=== PATIENT | female | born 1990 | race Caucasian/White ===

== ENCOUNTER 2017-08-21 10:06 | Inpatient (IN) | payer BC ==
[2017-08-21] MEDS ORDERED: ONDANSETRON HCL/PF 2 MG/ML VIAL IV PRN ×2 (10:13→15:44)
[2017-08-21] MEDS ORDERED: DEXTROSE 5%-LACTATED RINGERS 1,000 ML IV PRN (10:13)
[2017-08-21] MEDS ORDERED: LIDOCAINE HCL 50 ML VIAL PERI PRN (10:13)
[2017-08-21] MEDS ORDERED: RINGER'S SOLUTION,LACTATED 1,000 ML IV ONE (10:13)
[2017-08-21] MEDS ORDERED: OXYTOCIN/DEXTROSE 5%-WATER 30 UNITS/500 ML BAG IV ONE ×2 (10:13→18:39)
[2017-08-21] MEDS ORDERED: BUPIVACAINE HCL/0.9 % NACL/PF 250 ML EP PRN (15:44)
[2017-08-21] MEDS ORDERED: NALOXONE HCL 1 MG/1 ML SYRG IV PRN (15:44)
[2017-08-21] MEDS ORDERED: BUPIVACAINE HCL/PF 30 ML VIAL EP SCH (15:45)
--- NOTE | 2017-08-21 16:53 | OR ---
Anesthesia Procedure Note - Anesthesia Procedure Note Date of Service: 08/21/17 Narrative: Vital Signs - Last Taken Temp 36.4 C L 08/21/17 16:05 Pulse 84 08/21/17 16:05 Resp 16 08/21/17 16:05 BP 126/69 08/21/17 16:05 Pulse Ox 98 08/21/17 16:05 08/21/17 16:51 ANESTHESIA PROCEDURE NOTE Date of Procedure: 08/21/2017. Time of procedure: 1630. Performed by: Nicolas Milligan CRNA Dental Assistant Teacher: None. Preprocedure diagnosis: Active labor. Post procedure diagnosis: Same. Procedure: Insertion of labor epidural. Indications: The patient is a 27 -year-old female in active labor requesting labor epidural for pain management. Findings: See below. Details of the procedure: The patient was placed in a sitting position. DuraPrep as well as Betadine swabs X3 was applied to the patient's back. Patient was then draped in a sterile fashion. Lidocaine 1% was infiltrated to the skin and subcutaneous tissues at the level of the L3-4 interspace. The epidural space was identified using a 18-gauge Tuohy needle with loss-of- resistance technique. Epidural catheter was inserted to a depth of 11 centimeters at skin. Negative test dose was elicited using 3 mL of 1.5% preservative-free lidocaine plus epinephrine 1 200,000. The epidural catheter was then taped and secured in place. A loading dose of 8 mL of 0.25% preservative-free bupivacaine was administered to the epidural catheter after negative aspiration for blood and CSF. EBL: Minimal. Fluids: N/A. Specimen: N/A. Post procedure condition: The patient tolerated the procedure well. No complications were noted. Thank you for this consultation. Nicolas Milligan CRNA
--- NOTE | 2017-08-21 17:48 | PN ---
Progess Note - Interim Narrative: 08/21/17 17:46 Patient comfortable with epidural Vital signs stable. Pitocin at 6 mu/min. FHT: 130 baseline, reassuring Contractions q 2-3 min Cervix: 8/80/-1, AROM-clear Impression: Intrauterine at 39-3/7 weeks elective induction of labor Plan: Anticipate normal spontaneous vaginal delivery shortly
--- NOTE | 2017-08-21 18:29 | PN ---
Progess Note - Interim Narrative: 08/21/17 18:28 Spontaneous vaginal delivery of viable female at 1811 on 08/21/2017 with Apgars 8 and 9, weighing 3498 g in OP converted to PAVAN position. Cord clamping delayed approximately 1 minute Placenta delivered complete, intact, with three vessel cord Estimated blood loss: less than 50 ml Lacerations: None History for MU Definition: * The number of deliveries resulting in a live the patient experienced prior to current hospitalization * The previous delivery of live twins or any live multiple gestation is considered one live event. *If primagravida or nulliparous is documented select zero for the number of previous live births. Live Events: 2
[2017-08-21] MEDS ORDERED: MISOPROSTOL 200 MCG TABLET RC ONE (18:30)
[2017-08-21] MEDS ORDERED: HYDROCORTISONE 30 APPL TUBE TP PRN (18:39)
[2017-08-21] MEDS ORDERED: SENNOSIDES 8.6 MG TABLET PO PRN (18:39)
[2017-08-21] MEDS ORDERED: GLYCERIN/WITCH HAZEL LEAF 40 APPL BOX TP PRN (18:39)
[2017-08-21] MEDS ORDERED: oxyCODONE HCL/ACETAMINOPHEN 1 TAB TABLET PO PRN ×2 (18:39)
[2017-08-21] MEDS ORDERED: BENZOCAINE/MENTHOL 81 SPRAY CAN TP PRN (18:39)
[2017-08-21] MEDS ORDERED: BISACODYL 10 MG SUPP.RECT RC PRN (18:39)
[2017-08-21] MEDS: IBUPROFEN 800 MG TABLET PO PRN (21:32)
[2017-08-21] MEDS: DOCUSATE SODIUM 100 MG CAPSULE PO SCH (21:33)
[2017-08-22] MEDS: IBUPROFEN 800 MG TABLET PO PRN ×4 (03:29→23:20)
[2017-08-22] MEDS: DOCUSATE SODIUM 100 MG CAPSULE PO SCH ×3 (09:30→20:31)
--- NOTE | 2017-08-22 13:06 | PN ---
Subjective - Date and Time Seen Date: 08/22/17 Time: 13:05 Objective - Vitals Vitals: Last Vital Signs Temp 36.1 C L 08/22/17 06:46 Pulse 76 08/22/17 06:46 Resp 18 08/22/17 06:46 BP 113/57 08/22/17 06:46 Pulse Ox 98 08/22/17 06:46 Patient denies complaints. Lochia wnl Abdomen - soft, nontender Uterus - firm, at umbilicus - 1 No calf tenderness Impression: day #1 - s/p spontaneous vaginal delivery. Plan: Continue routine care Cauti Physician Documentation - Urinary Catheter Management Urethral (Lemus) Date of Insertion: 08/21/17 Time of Insertion: 17:08
[2017-08-23 07:30] VITALS: BP 110/75
[2017-08-23] MEDS: IBUPROFEN 800 MG TABLET PO PRN (08:09)
[2017-08-23] MEDS: DOCUSATE SODIUM 100 MG CAPSULE PO SCH (08:09)
--- NOTE | 2017-08-23 10:32 | PN ---
Subjective - Date and Time Seen Date: 08/23/17 Time: 10:32 Objective - Vitals Vitals: Last Vital Signs Temp 36.3 C L 08/23/17 07:27 Pulse 78 08/23/17 07:27 Resp 16 08/23/17 07:27 BP 110/75 08/23/17 07:27 Pulse Ox 99 08/23/17 07:27 Patient denies complaints. Lochia wnl Abdomen - soft, nontender Uterus - firm, at umbilicus - 2 No calf tenderness Impression: day #2 - s/p spontaneous vaginal delivery. Plan: Routine discharge instructions Cauti Physician Documentation - Urinary Catheter Management Urethral (Lemus) Date of Insertion: 08/21/17 Time of Insertion: 17:08
== END 2017-08-23 11:45 | disposition home or self-care (01) | DRG 774 ==
LOC: OB 10:06
PROVIDERS: ADMIT Obstetrics & Gynecology; ATTEND Obstetrics & Gynecology
PROC: 10E0XZZ Delivery of Products of Conception, External Approach (ICD-10-PCS; principal; 2017-08-21)
PROC: 10907ZC Drainage of Amniotic Fluid, Therapeutic from Products of Conception, Via Natural or Artificial Opening (ICD-10-PCS; 2017-08-21)
PROC: 4A1HXCZ Monitoring of Products of Conception, Cardiac Rate, External Approach (ICD-10-PCS; 2017-08-21)
PROC: 00HU33Z Insertion of Infusion Device into Spinal Canal, Percutaneous Approach (ICD-10-PCS; 2017-08-21)
DX: Z3A.39 39 weeks gestation of pregnancy; Z79.899 Other long term (current) drug therapy; O98.32 Other infections with a predominantly sexual mode of transmission complicating childbirth; Z37.0 Single live birth; A60.04 Herpesviral vulvovaginitis